=== PATIENT | male | born 2000 ===

== ENCOUNTER 2022-07-22 12:02 | Emergency (ER) | payer SELFPAY ==
--- NOTE | ~2022-07-22 | CT_ITS ---
EXAMINATION: CT ABDOMEN AND PELVIS WITH CONTRAST CLINICAL INFORMATION: Epigastric pain with nausea and vomiting COMPARISON: None available. TECHNIQUE: Multidetector volumetric images were obtained from the superior aspect of the liver through the pubic symphysis following administration 85 mL of Omnipaque 350 intravenous contrast. Sagittal and coronal reformatted images were obtained on the technologist's workstation. Oral contrast: No This CT examination was performed using dose optimization techniques as appropriate, variously including the following: *Automated exposure control *Adjustment of mA and/or kV according to patient size (this includes techniques or standardized protocols for targeted exams where dose is matched to indication/reason for exam; i.e. extremities or head) *Use of iterative reconstruction technique DLP: 635 mGy-cm FINDINGS: LUNG BASES: The visualized lung bases are unremarkable. LIVER, GALLBLADDER, AND BILIARY TREE: The liver is normal in size and shape but demonstrates decreased attenuation consistent with hepatic steatosis. There is focal fatty sparing seen around the gallbladder. No focal hepatic lesion or biliary ductal dilatation is present. The gallbladder is unremarkable with no evidence of radiopaque gallstones, gallbladder wall thickening, or obvious pericholecystic inflammatory changes. PANCREAS: Unremarkable. SPLEEN: Unremarkable. ADRENAL GLANDS: Unremarkable. KIDNEYS AND URETERS: The kidneys are normal in size, shape, and attenuation. No hydronephrosis, hydroureter, or calculi seen. No perinephric stranding. BLADDER: Unremarkable. GASTROINTESTINAL TRACT: The small and large bowel are unremarkable. Fluid is present in the rectosigmoid. The appendix is unremarkable. ABDOMINAL WALL: No significant hernia is appreciated. LYMPH NODES: No retroperitoneal adenopathy is seen. 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 The largest node measures about 1.7 x 1.1 x 0.8 cm. Prominent lymph nodes are seen in the region of the ileocecal mesentery as well. VASCULAR: Unremarkable. PELVIC VISCERA: The prostate and seminal vesicles are unremarkable. OSSEOUS STRUCTURES: Unremarkable. CT/CT abdomen pelvis w IV con IMPRESSION: 1. A cause for the patient's epigastric pain and nausea has not been found. 2. Incidental note made of hepatic steatosis and findings which may be seen in mesenteric panniculitis. Fleischner guidelines were followed.
[2022-07-22 12:16] VITALS: BP 123/81; PULSE 86; RESP 18; TEMP 36; O2SAT 97; BMI 31.6
--- NOTE | 2022-07-22 12:16 | ED_ITS ---
HPI - General Adult General Chief complaint: Nausea/Vomiting/Diarrhea <KANDI Umaña Last Filed: 07/22/22 12:18> Stated complaint: N/V/D/ tiredness <KANDI Umaña Last Filed: 07/22/22 12:18> Time Seen by Provider: 07/22/22 13:06 <KANDI Umaña Last Filed: 07/22/22 12:18> Source: patient <KANDI Ortega Last Filed: 07/22/22 15:25> Mode of arrival: ambulatory <KANDI Ortega Last Filed: 07/22/22 15:25> Limitations: no limitations <KANDI Ortega Last Filed: 07/22/22 15:25> History of Present Illness HPI narrative: 22-year-old male history of epigastric pain presents with nausea, vomiting, diarrhea, anorexia, not tolerating p.o. that started this morning. Patient reports abdominal pain in the epigastric region, nonradiating, described as an intermittent severe pain. Patient reports something like this has happ ened to him in the past. Patient does is appendix and gallbladder. Denies fevers, chills, chest pain, shortness of breath, headache, vision changes, dizziness. He does report recent travel to [place]. However denies changes in dietary habits <KANDI Ortega Last Filed: 07/22/22 15:25> Related Data Home medications: Previous Rx's Medication Instructions Recorded aluminum-mag hydroxide-simethicone 5 ml PO 5XD PRN dyspepsia #355 mL 07/22/22 200 mg-200 mg-20 mg/5 mL oral susp (Maalox Advanced) ondansetron 4 mg disintegrating 4 mg PO Q6H PRN nausea and 07/22/22 tablet vomiting #14 tabs <KANDI Umaña Last Filed: 07/22/22 12:18> Allergies/adverse reactions: Allergies Allergy/AdvReac Type Severity Reaction Status Date / Time No Known Allergies Allergy Verified 07/22/22 12:15 <KANDI Umaña Last Filed: 07/22/22 12:18> Review of Systems Review of Systems: Constitutional : No Weight loss, No Fever, No Chills, No Fatigue, No Malaise ENT/Mouth : No sore throat, No Rhinorrhea Eyes: No Eye Pain, No Swelling, No Redness Cardiovascular : No Chest Pain, No SOB, No Dyspnea on Exertion, No Orthopnea, No Edema, No Palpitations Respiratory : No Cough, No Sputum, No Wheezing Gastrointestinal : No Nausea, No Vomiting, No Diarrhea, No Constipation, + abdominal Pain, No Hematochezia, No Melena Genitourinary : No Dysuria, No Urinary Frequency, No Hematuria, Musculoskeletal : No joint pain, No Myalgias, No Joint Swelling Skin : No Skin Lesions, No rash Neuro : No Weakness, No Numbness, No Dizziness, No Headache Psych : No Anxiety/Panic, No Depression All other systems reviewed and are negative <KANDI Ortega - Last Filed: 07/22/22 15:25> Yes all other systems are reviewed and are negative <KANDI Ortega - Last Filed: 07/22/22 15:25> [facility] Past Medical History Attestation statement: The following information was validated with the patient. <KANDI Ortega - Last Filed: 07/22/22 15:25> Source: old records reviewed and nursing notes reviewed <KANDI Ortega - Last Filed: 07/22/22 15:25> Social History Social History: Social History Advance Directives: No Advance Directives Information Provided: No <KANDI Umaña - Last Filed: 07/22/22 12:18> Physical Exam ED Vital Signs: Vital Signs - 24 hr 07/22/22 12:16 Temperature 96.8 F Pulse Rate 86 Respiratory Rate 18 Blood Pressure 123/81 Pulse Oximetry 97 Oxygen Delivery Method Room Air BMI result Body Mass Index 31.6 <KANDI Umaña - Last Filed: 07/22/22 12:18> Vital Signs - 24 hr 07/22/22 12:16 Temperature 96.8 F Pulse Rate 86 Respiratory Rate 18 Blood Pressure 123/81 Pulse Oximetry 97 Oxygen Delivery Method Room Air BMI result Body Mass Index 31.6 vss <KANDI Ortega - Last Filed: 07/22/22 15:25> Appearance: Alert.? Oriented X3.? No acute distress.? Head: Normocephalic, atraumatic, no step-offs or deformities Eyes: Pupils equal, round and reactive to light.? ENT: Pharynx normal.? Neck: Normal inspection.? Neck supple.? CVS: Normal heart rate and rhythm.? Pulses normal.? Respiratory: No respiratory distress.? Breath sounds normal.? Abdomen: Soft and + epigastric tenderness. Normal BS throughout .? Skin: Skin warm and dry.? Normal skin color.? Normal skin turgor.? Extremities: No lower extremity edema.? No calf ttp. 5/5 strength to bilateral upper and lower extremities Neuro: Oriented X 3.? No motor deficit.? No sensory deficit. CN 2-12 intact <KANDI Ortega - Last Filed: 07/22/22 15:25> Course Course Course Narrative: RME: 22yo M w/no sig PMHx epigastric abdominal pain, N/V/D and generalized fatigue since 6AM. Reports unable to tolerate PO. Arrived from [place] 1wk ago. denies supicious food intake Abd soft +mild epigastric ttp no rebound or guarding Labs, UA, IVF, Pepcid/Maalox ordered Full HPI, ROS and PE to be performed by primary ED provider. <KANDI Umaña - Last Filed: 07/22/22 12:18> Reevaluation(s) Reevaluation #1: CBC with in notmal limits. Chemistry w/ slightly elevated BUN likley secondary to n/v and dehydration. Covid and influenza negative. <KANDI Ortega - Last Filed: 07/22/22 15:25> Time: 13:21 <KANDI Ortega - Last Filed: 07/22/22 15:25> Reevaluation #2: UA within normal limits. CT of the abdomen pelvis unable to identify cause for patient's epigastric pain and nausea. Hepatic steatosis noted, I do not suspect mesenteric panniculitis at this time. Patient to be discharged home with Maalox and Zofran. Educated patient on diagnosis and treatment plan, answered all question, patient verbalizes understanding. At this time patient will be discharged home, advised to return with new or worsening symptoms. Educated on worrisome signs and symptoms and when to return. At this time I feel comfortable discharge home. <KANDI Ortega - Last Filed: 07/22/22 15:25> Time: 15:25 <KANDI Ortega - Last Filed: 07/22/22 15:25> Medications Administered Discontinued Medications Generic Name Dose Route Start Last Admin Trade Name Freq PRN Reason Stop Dose Admin Al Hydroxide/Mg Hydroxide 30 ml 07/22/22 12:16 07/22/22 13:13 Magnesium Hydrox/Alum Hydrox 30 Ml Oral.Susp PO 07/22/22 12:17 30 ml ONCE ONE Administration Famotidine 20 mg 07/22/22 12:16 07/22/22 13:11 Famotidine/Pf 20 Mg/2 Ml Vial IVPUSH 07/22/22 12:17 20 mg ONCE ONE Administration Sodium Chloride 1,000 mls @ 999 mls/hr 07/22/22 12:30 07/22/22 14:16 Ns IV 07/22/22 13:30 Infused .Q1H1M BARTOLO Infusion Iohexol 100 ml 07/22/22 14:19 07/22/22 14:20 Iohexol 350 Mg/Ml 100 Ml Infus..Btl IV 07/22/22 14:20 85 ml ONCE ONE Administration Ondansetron HCl 4 mg 07/22/22 12:16 07/22/22 13:09 Ondansetron Hcl 4 Mg/2 Ml Vial IVPUSH 07/22/22 12:17 4 mg ONCE ONE Administration <KANDI Umaña - Last Filed: 07/22/22 12:18> Medications Administered Discontinued Medications Generic Name Dose Route Start Last Admin Trade Name Freq PRN Reason Stop Dose Admin Al Hydroxide/Mg Hydroxide 30 ml 07/22/22 12:16 07/22/22 13:13 Magnesium Hydrox/Alum Hydrox 30 Ml Oral.Susp PO 07/22/22 12:17 30 ml ONCE ONE Administration Famotidine 20 mg 07/22/22 12:16 07/22/22 13:11 Famotidine/Pf 20 Mg/2 Ml Vial IVPUSH 07/22/22 12:17 20 mg ONCE ONE Administration Sodium Chloride 1,000 mls @ 999 mls/hr 07/22/22 12:30 07/22/22 14:16 Ns IV 07/22/22 13:30 Infused .Q1H1M BARTOLO Infusion Iohexol 100 ml 07/22/22 14:19 07/22/22 14:20 Iohexol 350 Mg/Ml 100 Ml Infus..Btl IV 07/22/22 14:20 85 ml ONCE ONE Administration Ondansetron HCl 4 mg 07/22/22 12:16 07/22/22 13:09 Ondansetron Hcl 4 Mg/2 Ml Vial IVPUSH 07/22/22 12:17 4 mg ONCE ONE Administration <KANDI Ortega - Last Filed: 07/22/22 15:25> Medical Decision Making Medical Decision Making [facility] Narrative: 1322 22 year old male presents w/ epigastric pain, nausea, vomiting, anorexia. PE- w/ epigastric tenderness. Likely viral illness. Will rule out electrolyte abnormalities. No signs of acute abdomen, appendicitis, cholecystitis, diverticulitis, bowel obstruction. Plan labs, imaging, viral test. <KANDI Ortega - Last Filed: 07/22/22 15:25> Differential Diagnosis Differential Diagnoses: The differential diagnosis associated with the presentation includes <KANDI Ortega Last Filed: 07/22/22 15:25> Likely viral illness. Will rule out electrolyte abnormalities. No signs of acute abdomen, appendicitis, cholecystitis, diverticulitis, bowel obstruction. <KANDI Ortega - Last Filed: 07/22/22 15:25> Admission/Observation Consideration of admission/observation: Escalation of care including admission/observation considered <KANDI Ortega - Last Filed: 07/22/22 15:25> unlikley <KANDI Ortega - Last Filed: 07/22/22 15:25> Lab Data MDM Lab Attestation statement: I reviewed the patient's lab results. <KANDI Ortega - Last Filed: 07/22/22 15:25> Result Diagrams: 07/22/22 12:30 07/22/22 12:30 <KANDI Umaña Last Filed: 07/22/22 12:18> Labs: Lab Results 07/22/22 07/22/22 07/22/22 Range/Units 12:30 12:30 12:30 WBC 10.7 (4.8-10.8) X10*3/uL RBC 5.99 H (4.60-5.80) X10*6/uL Hgb 17.3 (14.0-18.0) g/dl Hct 50.0 (42.0-52.0) % MCV 83.5 (80.0-98.0) fL MCH 28.9 (27.0-33.0) pg MCHC 34.6 (31.0-36.0) g/dl RDW 11.9 (11.0-16.0) % Plt Count 363 (160-400) X10*3/uL MPV 9.6 (9.4-12.4) fL Immature Gran % (Auto) 0.2 (0.0-0.4) % Neut % (Auto) 74.2 H (45-73) % Lymph % (Auto) 7.3 L (20-40) % Hill % (Auto) 5.5 (2-11) % Eos % (Auto) 12.1 H (0-4) % Baso % (Auto) 0.7 (0-2) % Lymph # (Auto) 0.8 L (1.2-4.9) X10*3/uL Hill # (Auto) 0.6 (0.1-1.2) X10*3/uL Eos # (Auto) 1.3 H (0.0-0.4) X10*3/uL Baso # (Auto) 0.1 (0.0-0.2) X10*3/uL Abs Immat Gran (auto) 0.02 (0.00-0.03) X10*3/uL Absolute Neuts (auto) 7.9 (2.0-8.3) x10*3/uL Absolute Nucleated RBC 0.000 (0.0-0.012) X10*3/uL Nucleated RBC % (auto) 0.0 (0.0-0.2) /100WBC Sodium 137 (135-145) mmol/L Potassium 4.7 (3.3-5.1) mmol/L Chloride 105 (96-108) mmol/L Carbon Dioxide 23 (22-29) mmol/L Anion Gap 14 (12-20) BUN 18 H (9-16) mg/dL Creatinine 1.09 (0.5-1.4) mg/dL Estim Creat Clear Calc 110.0 Estimated GFR > 60 Random Glucose 113 (60-115) mg/dL Calcium 10.8 H (8.4-10.2) mg/dL Magnesium 2.2 (1.6-2.6) mg/dL Total Bilirubin 1.0 (0.0-1.0) mg/dL Direct Bilirubin 0.3 (0.0-0.5) mg/dL AST 23 (5-37) U/L ALT 32 (0-40) U/L Alkaline Phosphatase 84 (39-117) U/L Total Protein 9.1 H (6.5-8.0) g/dL Albumin 5.4 H (3.5-5.0) g/dL Lipase 16 (8-78) U/L Urine Color Urine Appearance Urine pH (5.0-9.0) Ur Specific [place] (1.005-1.025) Urine Protein (Neg-Trace) mg/dL Urine Glucose (UA) (Negative) mg/dL Urine Ketones (Negative) mg/dL Urine Blood (Negative) Urine Nitrite (Negative) Ur Leukocyte Esterase (Negative) COVID-19 (DARLYN) (Negative) COVID-19 Clin Com Influenza Type A (MARITZA) Negative (Negative) Influenza Type B (MARITZA) Negative (Negative) Influenza A & B Note See Note 07/22/22 07/22/22 Range/Units 12:30 14:41 WBC (4.8-10.8) X10*3/uL RBC (4.60-5.80) X10*6/uL Hgb (14.0-18.0) g/dl Hct (42.0-52.0) % MCV (80.0-98.0) fL MCH (27.0-33.0) pg MCHC (31.0-36.0) g/dl RDW (11.0-16.0) % Plt Count (160-400) X10*3/uL MPV (9.4-12.4) fL Immature Gran % (Auto) (0.0-0.4) % Neut % (Auto) (45-73) % Lymph % (Auto) (20-40) % Hill % (Auto) (2-11) % Eos % (Auto) (0-4) % Baso % (Auto) (0-2) % Lymph # (Auto) (1.2-4.9) X10*3/uL Hill # (Auto) (0.1-1.2) X10*3/uL Eos # (Auto) (0.0-0.4) X10*3/uL Baso # (Auto) (0.0-0.2) X10*3/uL Abs Immat Gran (auto) (0.00-0.03) X10*3/uL Absolute Neuts (auto) (2.0-8.3) x10*3/uL Absolute Nucleated RBC (0.0-0.012) X10*3/uL Nucleated RBC % (auto) (0.0-0.2) /100WBC Sodium (135-145) mmol/L Potassium (3.3-5.1) mmol/L Chloride (96-108) mmol/L Carbon Dioxide (22-29) mmol/L Anion Gap (12-20) BUN (9-16) mg/dL Creatinine (0.5-1.4) mg/dL Estim Creat Clear Calc Estimated GFR Random Glucose (60-115) mg/dL Calcium (8.4-10.2) mg/dL Magnesium (1.6-2.6) mg/dL Total Bilirubin (0.0-1.0) mg/dL Direct Bilirubin (0.0-0.5) mg/dL AST (5-37) U/L ALT (0-40) U/L Alkaline Phosphatase (39-117) U/L Total Protein (6.5-8.0) g/dL Albumin (3.5-5.0) g/dL Lipase (8-78) U/L Urine Color Yellow Urine Appearance Clear Urine pH 5.5 (5.0-9.0) Ur Specific [place] >= 1.030 H (1.005-1.025) Urine Protein Trace (Neg-Trace) mg/dL Urine Glucose (UA) Negative (Negative) mg/dL Urine Ketones Trace (Negative) mg/dL Urine Blood Negative (Negative) Urine Nitrite Negative (Negative) Ur Leukocyte Esterase Negative (Negative) COVID-19 (DARLYN) Negative (Negative) COVID-19 Clin Com See Note Influenza Type A (MARITZA) (Negative) Influenza Type B (MARITZA) (Negative) Influenza A & B Note <KANDI Umaña - Last Filed: 07/22/22 12:18> Lab Results 07/22/22 07/22/22 07/22/22 Range/Units 12:30 12:30 12:30 WBC 10.7 (4.8-10.8) X10*3/uL RBC 5.99 H (4.60-5.80) X10*6/uL Hgb 17.3 (14.0-18.0) g/dl Hct 50.0 (42.0-52.0) % MCV 83.5 (80.0-98.0) fL MCH 28.9 (27.0-33.0) pg MCHC 34.6 (31.0-36.0) g/dl RDW 11.9 (11.0-16.0) % Plt Count 363 (160-400) X10*3/uL MPV 9.6 (9.4-12.4) fL Immature Gran % (Auto) 0.2 (0.0-0.4) % Neut % (Auto) 74.2 H (45-73) % Lymph % (Auto) 7.3 L (20-40) % Hill % (Auto) 5.5 (2-11) % Eos % (Auto) 12.1 H (0-4) % Baso % (Auto) 0.7 (0-2) % Lymph # (Auto) 0.8 L (1.2-4.9) X10*3/uL Hill # (Auto) 0.6 (0.1-1.2) X10*3/uL Eos # (Auto) 1.3 H (0.0-0.4) X10*3/uL Baso # (Auto) 0.1 (0.0-0.2) X10*3/uL Abs Immat Gran (auto) 0.02 (0.00-0.03) X10*3/uL Absolute Neuts (auto) 7.9 (2.0-8.3) x10*3/uL Absolute Nucleated RBC 0.000 (0.0-0.012) X10*3/uL Nucleated RBC % (auto) 0.0 (0.0-0.2) /100WBC Sodium 137 (135-145) mmol/L Potassium 4.7 (3.3-5.1) mmol/L Chloride 105 (96-108) mmol/L Carbon Dioxide 23 (22-29) mmol/L Anion Gap 14 (12-20) BUN 18 H (9-16) mg/dL Creatinine 1.09 (0.5-1.4) mg/dL Estim Creat Clear Calc 110.0 Estimated GFR > 60 Random Glucose 113 (60-115) mg/dL Calcium 10.8 H (8.4-10.2) mg/dL Magnesium 2.2 (1.6-2.6) mg/dL Total Bilirubin 1.0 (0.0-1.0) mg/dL Direct Bilirubin 0.3 (0.0-0.5) mg/dL AST 23 (5-37) U/L ALT 32 (0-40) U/L Alkaline Phosphatase 84 (39-117) U/L Total Protein 9.1 H (6.5-8.0) g/dL Albumin 5.4 H (3.5-5.0) g/dL Lipase 16 (8-78) U/L Urine Color Urine Appearance Urine pH (5.0-9.0) Ur Specific [place] (1.005-1.025) Urine Protein (Neg-Trace) mg/dL Urine Glucose (UA) (Negative) mg/dL Urine Ketones (Negative) mg/dL Urine Blood (Negative) Urine Nitrite (Negative) Ur Leukocyte Esterase (Negative) COVID-19 (DARLYN) (Negative) COVID-19 Clin Com Influenza Type A (MARITZA) Negative (Negative) Influenza Type B (MARITZA) Negative (Negative) Influenza A & B Note See Note 07/22/22 07/22/22 Range/Units 12:30 14:41 WBC (4.8-10.8) X10*3/uL RBC (4.60-5.80) X10*6/uL Hgb (14.0-18.0) g/dl Hct (42.0-52.0) % MCV (80.0-98.0) fL MCH (27.0-33.0) pg MCHC (31.0-36.0) g/dl RDW (11.0-16.0) % Plt Count (160-400) X10*3/uL MPV (9.4-12.4) fL Immature Gran % (Auto) (0.0-0.4) % Neut % (Auto) (45-73) % Lymph % (Auto) (20-40) % Hill % (Auto) (2-11) % Eos % (Auto) (0-4) % Baso % (Auto) (0-2) % Lymph # (Auto) (1.2-4.9) X10*3/uL Hill # (Auto) (0.1-1.2) X10*3/uL Eos # (Auto) (0.0-0.4) X10*3/uL Baso # (Auto) (0.0-0.2) X10*3/uL Abs Immat Gran (auto) (0.00-0.03) X10*3/uL Absolute Neuts (auto) (2.0-8.3) x10*3/uL Absolute Nucleated RBC (0.0-0.012) X10*3/uL Nucleated RBC % (auto) (0.0-0.2) /100WBC Sodium (135-145) mmol/L Potassium (3.3-5.1) mmol/L Chloride (96-108) mmol/L Carbon Dioxide (22-29) mmol/L Anion Gap (12-20) BUN (9-16) mg/dL Creatinine (0.5-1.4) mg/dL Estim Creat Clear Calc Estimated GFR Random Glucose (60-115) mg/dL Calcium (8.4-10.2) mg/dL Magnesium (1.6-2.6) mg/dL Total Bilirubin (0.0-1.0) mg/dL Direct Bilirubin (0.0-0.5) mg/dL AST (5-37) U/L ALT (0-40) U/L Alkaline Phosphatase (39-117) U/L Total Protein (6.5-8.0) g/dL Albumin (3.5-5.0) g/dL Lipase (8-78) U/L Urine Color Yellow Urine Appearance Clear Urine pH 5.5 (5.0-9.0) Ur Specific [place] >= 1.030 H (1.005-1.025) Urine Protein Trace (Neg-Trace) mg/dL Urine Glucose (UA) Negative (Negative) mg/dL Urine Ketones Trace (Negative) mg/dL Urine Blood Negative (Negative) Urine Nitrite Negative (Negative) Ur Leukocyte Esterase Negative (Negative) COVID-19 (DARLYN) Negative (Negative) COVID-19 Clin Com See Note Influenza Type A (MARITZA) (Negative) Influenza Type B (MARITZA) (Negative) Influenza A & B Note <KANDI Ortega - Last Filed: 07/22/22 15:25> Independent Interpretation I performed an independent interpretation of an: CT Scan <KANDI Ortega - Last Filed: 07/22/22 15:25> Radiology Impression Discussion of test interpretation with radiology: I have reviewed the radiologist's reading. <KANDI Ortega - Last Filed: 07/22/22 15:25> Core Measures AMI core measures followed: Yes <KANDI Ortega - Last Filed: 07/22/22 15:25> Measure exclusions: not indicated <KANDI Ortega - Last Filed: 07/22/22 15:25> Critical Care Time Critical Care Time Critical Care Time: No <KANDI Ortega - Last Filed: 07/22/22 15:25> Discharge Plan Discharge Clinical Impression: Viral illness <KANDI Umaña - Last Filed: 07/22/22 12:18> Patient Disposition: Home, Self-Care <KANDI Umaña Last Filed: 07/22/22 12:18> Instructions: Viral Syndrome (ED) <KANDI Umaña - Last Filed: 07/22/22 12:18> Additional Instructions: Take your medications as prescribed. If you were prescribed antibiotics today, it is important that you take your medication to their entirety, do not skip any doses, do not finish them early. Follow-up with your primary care provider this week. Return to the emergency department with new or worsening symptoms. Such as fevers, chills, chest pain, shortness of breath, nausea, vomiting, dizziness, headache, vision changes, lethargy In case of emergency call 911 CT/CT abdomen pelvis w IV con IMPRESSION: 1.? A cause for the patient's epigastric pain and nausea has not been found. 2.? Incidental note made of hepatic steatosis and findings which may be seen in mesenteric panniculitis. ? Fleischner guidelines were followed. <KANDI Umaña - Last Filed: 07/22/22 12:18> Prescriptions: New alum-mag hydroxide-simeth [Maalox Advanced] 200-200-20 mg/5 mL suspension 5 ml PO 5XD PRN (Reason: dyspepsia) Qty: 355 0RF Rx Instructions: administer between meals and at bedtime ondansetron 4 mg tablet,disintegrating 4 mg PO Q6H PRN (Reason: nausea and vomiting) Qty: 14 0RF <KANDI Umaña - Last Filed: 07/22/22 12:18> Referrals: Physician,None [Primary Care Provider] - 2 days <KANDI Umaña Last Filed: 07/22/22 12:18> Stand Alone Forms: Work/School Release <KANDI Umaña Last Filed: 07/22/22 12:18>
[2022-07-22 12:36] LABS: Basophils Absolute Auto 0.1 X10*3/uL (0.0-0.2); Basophils Percent Auto 0.7 % (0-2); Eosinophils Absolute Auto 1.3 X10*3/uL (0.0-0.4); Eosinophils Percent Auto 12.1 % (0-4); Hemoglobin 17.3 g/dl (14.0-18.0); Imm Gran Abs Auto 0.02 X10*3/uL (0.00-0.03); Imm Gran Pct Auto 0.2 % (0.0-0.4); Lymphocytes Absolute Auto 0.8 X10*3/uL (1.2-4.9); Lymphocytes Percent Auto 7.3 % (20-40); MANUAL DIFF FLAG NO; Mean Corpuscular HGB Conc 34.6 g/dl (31.0-36.0); Mean Corpuscular Hemoglobin 28.9 pg (27.0-33.0); Mean Corpuscular Volume 83.5 fL (80.0-98.0); Mean Platelet Volume 9.6 fL (9.4-12.4); Monocytes Absolute Auto 0.6 X10*3/uL (0.1-1.2); Monocytes Percent Auto 5.5 % (2-11); Neutrophils Absolute Auto 7.9 x10*3/uL (2.0-8.3); Neutrophils Percent Auto 74.2 % (45-73); Platelet Count 363 X10*3/uL (160-400); Red Blood Count 5.99 X10*6/uL (4.60-5.80); Red Cell Distribution Width 11.9 % (11.0-16.0); White Blood Count 10.7 X10*3/uL (4.8-10.8)
[2022-07-22 12:55] LABS: COVID-19 Test Negative (Negative); IDNOW Serial# 08D9AD1C
[2022-07-22 12:56] LABS: IDNOW Serial# BCCEAD1C; Influenza A Negative (Negative); Influenza B2 Negative (Negative)
[2022-07-22 12:58] LABS: Alanine Aminotransferase 32 U/L (0-40); Albumin Level 5.4 g/dL (3.5-5.0); Alkaline Phosphatase 84 U/L (39-117); Anion Gap 14 (12-20); Aspartate Amino Transferase 23 U/L (5-37); Bilirubin Direct 0.3 mg/dL (0.0-0.5); Blood Urea Nitrogen 18 mg/dL (9-16); Calcium 10.8 mg/dL (8.4-10.2); Carbon Dioxide 23 mmol/L (22-29); Chloride 105 mmol/L (96-108); Estimated Glomerular Filt Rate > 60; Glucose Random 113 mg/dL (60-115); Lipase 16 U/L (8-78); Magnesium 2.2 mg/dL (1.6-2.6); Potassium 4.7 mmol/L (3.3-5.1); Sodium 137 mmol/L (135-145); Total Protein 9.1 g/dL (6.5-8.0)
[2022-07-22] MEDS: 0.9 % Sodium Chloride 1,000 ML 999 ML IV (12:58)
[2022-07-22] MEDS: ondansetron HCL 4 MG/2 ML VIAL IVPUSH (13:09)
[2022-07-22] MEDS: Famotidine/PF 20 MG/2 ML VIAL IVPUSH (13:11)
--- NOTE | 2022-07-22 13:11 | PC.NURSE ---
pt medicated per MAY, 20g IV in left AC infusing 1L NS, pt resting comfortably, call ibarra within reach
[2022-07-22] MEDS: Magnesium Hydrox/Alum Hydrox 30 ML ORAL.SUSP PO (13:13)
[2022-07-22] MEDS: iohexoL 350 MG/ML 100 ML INFUS..BTL IV (14:20)
[2022-07-22 14:48] LABS: Appearance Urine Clear; Color Urine Yellow; Glucose Urine UA Negative (Negative); Leukocyte Esterase Urine Negative (Negative); Nitrite Urine Negative (Negative); PH 5.5 (5.0-9.0); Specific Gravity - Urine >= 1.030 (1.005-1.025); Urine Blood Negative (Negative); Urine Ketones Trace mg/dL (Negative); Urine Protein Trace mg/dL (Neg-Trace)
== END 2022-07-22 15:39 | disposition home or self-care (01) ==
PROVIDERS: Physician Assistant; Emergency Provider Emergency Medicine
DX: B34.9 Viral infection, unspecified (principal); R11.2 Nausea with vomiting, unspecified; R10.2 Pelvic and perineal pain; Z20.822 Contact with and (suspected) exposure to COVID-19; Z20.828 Contact with and (suspected) exposure to other viral communicable diseases; Z79.899 Other long term (current) drug therapy
CPT/HCPCS: 74177; 80048; 80076; 81003; 83690; 83735; 85025; 87502; 87635; 96361; 96374; 96375; 99284; J2405; Q9967

== ENCOUNTER 2023-06-05 11:52 | Emergency (ER) | payer MEDICAID, SELFPAY ==
--- NOTE | ~2023-06-05 | US_ITS ---
EXAMINATION: US ABDOMEN LIMITED CLINICAL INFORMATION: Right upper quadrant epigastric pain. COMPARISON: None available. TECHNIQUE: Real-time imaging of the right upper quadrant abdominal viscera. Technical limitation secondary to bowel gas. FINDINGS: PANCREAS: Pancreas is largely obscured by overlying bowel gas. LIVER: Liver is borderline enlarged measuring 17.3 cm increased echogenicity suggesting hepatic steatosis with regions of focal fatty sparing adjacent to gallbladder fossa. The liver contour is normal. No focal hepatic lesion. There is no intrahepatic biliary duct dilatation seen. GALLBLADDER: Normal. The gallbladder is physiologically distended without evidence of stones, sludge, polyps, wall thickening or pericholecystic fluid. Sonographic Pleitez sign is negative. COMMON BILE DUCT: Normal in caliber measuring 0.5 cm in diameter. RIGHT KIDNEY: Normal. No hydronephrosis. No renal calculi or focal parenchymal lesions. The kidney measures 11.5 cm in maximum dimension. FREE FLUID: None. US/US abdomen limited IMPRESSION: Liver is borderline enlarged measuring 17.3 cm increased echogenicity suggesting hepatic steatosis with regions of focal fatty sparing adjacent to gallbladder fossa.
[2023-06-05 12:10] VITALS: BP 131/87; PULSE 85; RESP 18; TEMP 36.1; O2SAT 98; BMI 31.6
--- NOTE | 2023-06-05 12:19 | ED.ABDPAIN ---
HPI - Abdominal Pain General Chief Complaint: Abdominal Pain Stated Complaint: Abd pain Time Seen by Provider: 06/05/23 17:06 Source: patient Mode of arrival: ambulatory Limitations: no limitations History of Present Illness HPI narrative: This is a 23 year old male hx of epigastric pain presents with nausea, vomiting, diarrhea, anorexia, not tolerating p.o., abdominal pain that started three days ago. Patient reports abdominal pain in the epigastric region, nonradiating, described as an intermittent severe pain. Patient reports something like this has happened to him in the past and was seen for this before. No hx of abdominal surgeries. Denies fevers, chills, chest pain, shortness of breath, headache, vision changes, dizziness, cp, sob Related Data Previous Rx's Medication Instructions Recorded aluminum-mag hydroxide-simethicone 5 ml PO 5XD PRN dyspepsia #355 mL 07/22/22 200 mg-200 mg-20 mg/5 mL oral susp (Maalox Advanced) ondansetron 4 mg disintegrating 4 mg PO Q6H PRN nausea and 07/22/22 tablet vomiting #14 tabs aluminum-mag hydroxide-simethicone 5 ml PO 5XD PRN dyspepsia #355 mL 06/05/23 200 mg-200 mg-20 mg/5 mL oral susp (Maalox Advanced) omeprazole 20 mg capsule,delayed 20 mg PO DAILY #30 caps 06/05/23 release ondansetron 4 mg disintegrating 4 mg PO Q6H PRN nausea and 06/05/23 tablet vomiting #14 tabs Allergies Allergy/AdvReac Type Severity Reaction Status Date / Time No Known Allergies Allergy Verified 06/05/23 12:14 Review of Systems Review of Systems Constitutional : No Weight loss, No Fever, No Chills, No Fatigue, No Malaise ENT/Mouth : No sore throat, No Rhinorrhea Eyes: No Eye Pain, No Swelling, No Redness Cardiovascular : No Chest Pain, No SOB, No Dyspnea on Exertion, No Orthopnea, No Edema, No Palpitations Respiratory : No Cough, No Sputum, No Wheezing Gastrointestinal : No Nausea, No Vomiting, No Diarrhea, No Constipation, + abdominal Pain, No Hematochezia, No Melena Genitourinary : No Dysuria, No Urinary Frequency, No Hematuria, Musculoskeletal : No joint pain, No Myalgias, No Joint Swelling Skin : No Skin Lesions, No rash Neuro : No Weakness, No Numbness, No Dizziness, No Headache Psych : No Anxiety/Panic, No Depression Yes all other systems are reviewed and are negative PMFSH Past Medical History Attestation statement: The following information was validated with the patient. Source: old records reviewed and nursing notes reviewed Social History Social History Smoked in Last 30 Days: Yes Use of substances other than those prescribed or required for medical reasons: No Physical Exam ED Vital Signs: Vital Signs - 24 hr 06/05/23 12:10 06/05/23 17:11 Temperature 97 F Pulse Rate 85 66 Respiratory Rate 18 18 Blood Pressure 131/87 139/92 H Pulse Oximetry 98 97 Oxygen Delivery Method Room Air Room Air BMI result Body Mass Index 31.6 vss Appearance: Alert.? Oriented X3.? No acute distress.? Head: Normocephalic, atraumatic, no step-offs or deformities Eyes: Pupils equal, round and reactive to light.? ENT: Pharynx normal.? Neck: Normal inspection.? Neck supple.? CVS: Normal heart rate and rhythm.? Pulses normal.? Respiratory: No respiratory distress.? Breath sounds normal.? Abdomen: Soft and + epigastric tenderness. Normal BS throughout .? Skin: Skin warm and dry.? Normal skin color.? Normal skin turgor.? Extremities: No lower extremity edema.? No calf ttp. 5/5 strength to bilateral upper and lower extremities Neuro: Oriented X 3.? No motor deficit.? No sensory deficit. CN 2-12 intact Course Course Course Narrative: This is an RME: Additional HPI, ROS, PE not included below will be deferred to primary provider. This is a 23-year-old male presenting to the emergency department with complaints of epigastric pain x3 days. States that his pain started after eating a spicy meal. He states that the pain worsens after eating. Endorsing nausea and diarrhea. No active nausea. Unable to tolerate p.o. secondary to worsening pain. No previous surgeries. Tenderness palpation in the epigastrium and right upper quadrant. Plan: Labs, ultrasound, viral swabs, further ER evaluation needed. Reevaluation(s) Reevaluation #1: CC unremarkable. Chemistry no acute findings requiring intervention. Normal lipase. US w/ Liver is borderline enlarged measuring 17.3 cm increased echogenicity suggesting hepatic steatosis with regions of focal fatty sparing adjacent to gallbladder fossa. , negative murphys on my exam unlikley acute edward. No signs of acute abdomen or appendiciits. Likely gastritis vs gerd. Plan dc home w/ omeprazole, Zofran and Maalox Educated patient on diagnosis and treatment plan, answered all question, patient verbalizes understanding. At this time patient will be discharged home, advised to return with new or worsening symptoms. Educated on worrisome signs and symptoms and when to return. At this time I feel comfortable discharge home. Time: 17:14 Reevaluation #2: Patient tollerating pO Time: 17:43 Medical Decision Making Medical Decision Making [facility] Narrative: 1711 23 year old male presents w/ epigastric pain, nausea, vomiting, anorexia. PE- w/ epigastric tenderness. Likely viral illness vs gastritis ( most likely) vs gerd. Will rule out electrolyte abnormalities. No signs of acute abdomen, appendicitis, cholecystitis, diverticulitis, bowel obstruction. Plan labs, imaging, viral test. Differential Diagnosis Differential Diagnoses: The differential diagnosis associated with the presentation includes Likely viral illness vs gastritis ( most likely) vs gerd. Will rule out electrolyte abnormalities. No signs of acute abdomen, appendicitis, cholecystitis, diverticulitis, bowel obstruction. Admission/Observation Consideration of admission/observation: Escalation of care including admission/observation considered unlikely Lab Data [facility] Lab Attestation statement: I reviewed the patient's lab results. 06/05/23 12:21 06/05/23 12:21 Labs: Lab Results 06/05/23 Range/Units 12:21 WBC 8.6 (4.8-10.8) X10*3/uL RBC 5.41 (4.60-5.80) X10*6/uL Hgb 15.9 (14.0-18.0) g/dl Hct 44.9 (42.0-52.0) % MCV 83.0 (80.0-98.0) fL MCH 29.4 (27.0-33.0) pg MCHC 35.4 (31.0-36.0) g/dl RDW 11.9 (11.0-16.0) % Plt Count 351 (160-400) X10*3/uL MPV 9.4 (9.4-12.4) fL Immature Gran % (Auto) 0.2 (0.0-0.4) % Neut % (Auto) 75.5 H (45-73) % Lymph % (Auto) 14.7 L (20-40) % Hamilton % (Auto) 5.6 (2-11) % Eos % (Auto) 3.9 (0-4) % Baso % (Auto) 0.1 (0-2) % Lymph # (Auto) 1.3 (1.2-4.9) X10*3/uL Hamilton # (Auto) 0.5 (0.1-1.2) X10*3/uL Eos # (Auto) 0.3 (0.0-0.4) X10*3/uL Baso # (Auto) 0.0 (0.0-0.2) X10*3/uL Abs Immat Gran (auto) 0.02 (0.00-0.03) X10*3/uL Absolute Neuts (auto) 6.5 (2.0-8.3) x10*3/uL Absolute Nucleated RBC 0.000 (0.0-0.012) X10*3/uL Nucleated RBC % (auto) 0.0 (0.0-0.2) /100WBC Sodium 136 (135-145) mmol/L Potassium 4.2 (3.3-5.1) mmol/L Chloride 102 (96-108) mmol/L Carbon Dioxide 28 (22-29) mmol/L Anion Gap 10 L (12-20) BUN 8 L (9-16) mg/dL Creatinine 0.86 (0.5-1.4) mg/dL Estim Creat Clear Calc 138.3 Estimated GFR > 60 Random Glucose 101 (60-115) mg/dL Calcium 10.4 H (8.4-10.2) mg/dL Total Bilirubin 0.4 (0.0-1.0) mg/dL AST 16 (5-37) U/L ALT 32 (0-40) U/L Alkaline Phosphatase 76 (39-117) U/L Total Protein 8.3 H (6.5-8.0) g/dL Albumin 4.6 (3.5-5.0) g/dL Lipase 14 (8-78) U/L Influenza Type A (PCR) NEGATIVE (Negative) Influenza Type B (PCR) NEGATIVE (Negative) RSV RNA Qual (PCR) NEGATIVE (Negative) SARS-CoV-2 RNA (RT-PCR) NEGATIVE (Negative) Independent Interpretation I performed an independent interpretation of an: Ultrasound (US/US abdomen limited IMPRESSION: Liver is borderline enlarged measuring 17.3 cm increased echogenicity suggesting hepatic steatosis with regions of focal fatty sparing adjacent to gallbladder fossa. ) Radiology Impression Discussion of test interpretation with radiology: I have reviewed the radiologist's reading. External Record Review External record reviewed: Outpatient record Tests considered The following testing was considered but not selected: pain localized only to epigastric region no peritoneal signs, labs unremarkable --> no indication for ct abd or pelvis Prescription Management I considered prescription management with: Other (maalox and zofran ) Chronic Conditions Patient?s care impacted by: Other (no known ) Medications Administered Discontinued Medications Generic Name Dose Route Start Last Admin Trade Name Freq PRN Reason Stop Dose Admin Al Hydroxide/Mg Hydroxide 15 ml 06/05/23 17:15 06/05/23 17:32 Magnesium Hydrox/Alum Hydrox 30 Ml Oral.Susp PO 06/05/23 17:16 15 ml ONCE ONE Administration Belladonna Alkaloids/Phenobarbital 10 ml 06/05/23 17:15 06/05/23 17:31 Phenobarb/Hyoscy/Atropine/Scop 10 Ml Elixir PO 06/05/23 17:16 10 ml ONCE ONE Administration Ondansetron HCl 4 mg 06/05/23 17:15 06/05/23 17:32 Ondansetron Odt 4 Mg Tab.Rapdis TRANSLINGU 06/05/23 17:16 4 mg ONCE ONE Administration Critical Care Time Critical Care Time Critical Care Time: Yes Total Critical Care Time: 35 Attestation: I attest to this time spent taking care of the patient, obtaining history, physical, reviewing labs, imaging Discharge Plan Discharge Clinical Impression: Gastritis Patient Disposition: Home, Self-Care Instructions: Gastritis (ED), Gastritis (DC), Diet for Stomach Ulcers and Gastritis (ED) Additional Instructions: Take your medications as prescribed. If you were prescribed antibiotics today, it is important that you take your medication to their entirety, do not skip any doses, do not finish them early. Follow-up with your primary care provider this week. Return to the emergency department with new or worsening symptoms. Such as fevers, chills, chest pain, shortness of breath, nausea, vomiting, dizziness, headache, vision changes, lethargy In case of emergency call 911 Prescriptions: New alum-mag hydroxide-simeth [Maalox Advanced] 200-200-20 mg/5 mL suspension 5 ml PO 5XD PRN (Reason: dyspepsia) Qty: 355 0RF Rx Instructions: administer between meals and at bedtime ondansetron 4 mg tablet,disintegrating 4 mg PO Q6H PRN (Reason: nausea and vomiting) Qty: 14 0RF omeprazole 20 mg capsule,delayed release(DR/EC) 20 mg PO DAILY Qty: 30 0RF No Action alum-mag hydroxide-simeth [Maalox Advanced] 200-200-20 mg/5 mL suspension 5 ml PO 5XD PRN (Reason: dyspepsia) Qty: 355 0RF Rx Instructions: administer between meals and at bedtime ondansetron 4 mg tablet,disintegrating 4 mg PO Q6H PRN (Reason: nausea and vomiting) Qty: 14 0RF Referrals: [facility] [Provider Group] - 1 day
[2023-06-05 12:26] LABS: MANUAL DIFF FLAG NO
[2023-06-05 12:28] LABS: Basophils Percent Auto 0.1 % (0-2); Eosinophils Absolute Auto 0.3 X10*3/uL (0.0-0.4); Eosinophils Percent Auto 3.9 % (0-4); Hematocrit 44.9 % (42.0-52.0); Hemoglobin 15.9 g/dl (14.0-18.0); Imm Gran Abs Auto 0.02 X10*3/uL (0.00-0.03); Imm Gran Pct Auto 0.2 % (0.0-0.4); Lymphocytes Absolute Auto 1.3 X10*3/uL (1.2-4.9); Lymphocytes Percent Auto 14.7 % (20-40); Mean Corpuscular HGB Conc 35.4 g/dl (31.0-36.0); Mean Corpuscular Hemoglobin 29.4 pg (27.0-33.0); Mean Platelet Volume 9.4 fL (9.4-12.4); Monocytes Absolute Auto 0.5 X10*3/uL (0.1-1.2); Monocytes Percent Auto 5.6 % (2-11); Neutrophils Absolute Auto 6.5 x10*3/uL (2.0-8.3); Neutrophils Percent Auto 75.5 % (45-73); Platelet Count 351 X10*3/uL (160-400); Red Blood Count 5.41 X10*6/uL (4.60-5.80); Red Cell Distribution Width 11.9 % (11.0-16.0); White Blood Count 8.6 X10*3/uL (4.8-10.8)
[2023-06-05 12:42] LABS: Alanine Aminotransferase 32 U/L (0-40); Albumin Level 4.6 g/dL (3.5-5.0); Alkaline Phosphatase 76 U/L (39-117); Anion Gap 10 (12-20); Aspartate Amino Transferase 16 U/L (5-37); Bilirubin Total 0.4 mg/dL (0.0-1.0); Blood Urea Nitrogen 8 mg/dL (9-16); Calcium 10.4 mg/dL (8.4-10.2); Carbon Dioxide 28 mmol/L (22-29); Chloride 102 mmol/L (96-108); Creatinine Clr Calc Pharmacy 138.3; Estimated Glomerular Filt Rate > 60; Glucose Random 101 mg/dL (60-115); Lipase 14 U/L (8-78); Potassium 4.2 mmol/L (3.3-5.1); Sodium 136 mmol/L (135-145); Total Protein 8.3 g/dL (6.5-8.0)
[2023-06-05 13:34] LABS: Influenza A PCR NEGATIVE (Negative); Influenza B PCR NEGATIVE (Negative); Resp Syncy Virus RNA Qual PCR NEGATIVE (Negative); SARS COV2 PCR INHOUSE NEGATIVE (Negative)
[2023-06-05 17:11] VITALS: BP 139/92; PULSE 66; RESP 18; O2SAT 97
[2023-06-05] MEDS: PHENobarb/Hyoscy/Atropine/Scop 10 ML ELIXIR PO (17:31)
[2023-06-05] MEDS: Magnesium Hydrox/Alum Hydrox 30 ML ORAL.SUSP 15 ML PO (17:32)
[2023-06-05] MEDS: Ondansetron ODT 4 MG TAB.RAPDIS TRANSLINGU (17:32)
[2023-06-05 17:52] VITALS: BP 139/92; PULSE 78; RESP 18; TEMP 37.1; O2SAT 97
== END 2023-06-05 18:06 | disposition home or self-care (01) ==
PROVIDERS: Emergency Provider Student in an Organized Health Care Education/Training Program
DX: K29.70 Gastritis, unspecified, without bleeding (principal); Z11.52 Encounter for screening for COVID-19; Z20.828 Contact with and (suspected) exposure to other viral communicable diseases
CPT/HCPCS: 0241U; 36415; 76705; 80053; 83690; 85025; 99284